=== PATIENT | male | born 1950 | race Caucasian/White ===

== ENCOUNTER 2019-07-11 04:19 | Emergency (ER) | payer OTHER, SELFPAY ==
[2019-07-11 04:20] VITALS: BP 177/68; PULSE 114; RESP 19; TEMP 36.4; O2SAT 100; BMI 25.2
[2019-07-11 04:33] VITALS: TEMP 36.4
[2019-07-11 04:50] LABS: Bacteria 0 SEEN /hpf (None Seen); Mucous, Urine 0 SEEN /hpf (<or=2+); Squamous Epithelial Cells - UA 0 SEEN /hpf (0-5)
[2019-07-11 05:32] LABS: Color, Urine Red (Yellow); Glucose, Dipstick Normal (Normal); Ketone-Dipstick Negative (Negative); Leukocyte Esterase-Dipstick 100 /ul (Negative); Nitrite-Dipstick Negative (Negative); Occult Blood-Urine 250 /ul (Negative); Protein-Dipstick 500 mg/dl (Negative); Urine Bilirubin Dipstick Negative (Negative); Urine Clarity Turbid (Clear); Urine Urobilinogen Normal (Normal)
[2019-07-11 05:35] LABS: Red Blood Cells-Urine > 100 SEEN /hpf (0-5); White Blood Cells >100 SEEN /hpf (0-5)
--- NOTE | 2019-07-11 05:57 | ED.VIS.GEN ---
History of Present Illness Chief Complaint: Complaint Narrative: Patient presenting for evaluation secondary to hematuria and dysuria. Patient has an underlying history of BPH. He is on Plavix. Patient states that approximately a week ago he had a couple of days of burning when he urinated as well as blood in his urine. He reports that this cleared up, and then since yesterday he has been having more blood in his urine. He states that intermittently he will urinate clots. He has a feeling of urinary urgency and incomplete emptying as well as dysuria. He denies any flank pain as well as denies any fevers or any other constitutional symptoms. Review of systems otherwise negative. Past Medical History - Allergies and Home Meds Allergies/Adverse Reactions: Allergies No Known Allergies Allergy (Verified 07/11/19 04:27) Primary Care Physician: NOT,DEFINED [NON-STAFF] - Past Medical History: - - Hypothyroidism, coronary artery disease, tobacco abuse Smoking Status: Current every day smoker Review of Systems General: Denies: Chills, Fever, Sweats Eyes: Denies: Visual changes - bilaterally, Diplopia ENT: Denies: Rhinorrhea, Sore throat Cardiovascular: Denies: Chest pain, Palpitations Respiratory: Denies: Dyspnea, Cough, Dyspnea on exertion Gastrointestinal: Denies: Abdominal pain, Nausea, Vomiting, Diarrhea, Melena, Hematochezia Genitourinary: Reports: Dysuria, Hematuria, Frequency Musculoskeletal: Denies: Back pain, Extremity Pain Skin: Denies: Rash, Wounds Neurological: Denies: Headache, Weakness, Numbness Physical Exam Vital Signs/Narrative: Vital Signs Temp Pulse Resp BP Pulse Ox 07/11/19 04:33 97.5 F L 07/11/19 04:20 97.5 F L 114 H 19 H 177/68 H 100 Inital Vital Signs reviewed: Yes General: Well nourished, Well developed, No Acute Distress, - - Strong smell of tobacco Head: Normocephalic, Atraumatic Eyes: Perrl, EOMI ENT: Moist mucous membranes, No rhinorrhea Neck: Supple, Nontender Cardiovascular: Regular rhythm, No murmurs, Tachycardia Respiratory: No distress, CTA bilaterally, Chest nontender Abdomen: Soft, Nontender, Nondistended, Normal bowel sounds Back: Nontender, Normal Inspection Extremities: Nontender, No edema Skin: Normal color, No rash Neurological: Alert, Oriented x3, Cranial nerves II-XII grossly intact, Normal Strength, Normal Sensation Psychological: Normal affect, Normal Mood Diagnostic/Tx/Re-eval - Medical Decision Making Patient presented secondary to hematuria. Urinalysis was obtained which shows a significant amount of both whites and red cells likely consistent with a urinary tract infection. Urine was sent for culture. Bedside bladder scan showed the patient to only have retention of 150 cc of urine, I do not believe that he requires catheter placement at this point. Patient will be treated with a course of Keflex. I did inform the patient that with any history of smoking, hematuria runs the risk of being a predecessor to bladder cancer, and I will refer the patient to urology for follow-up. Patient understands signs and symptoms which to return. Patient was discharged in stable condition. ED Disposition - Plan for ED Patient: Disposition: Home or Assisted Living Diagnosis: Hematuria, Urinary tract infection Instructions: Bladder Infection, Male (Adult), Hematuria Prescriptions: Cephalexin [Keflex] 500 mg PO Q12 #14 cap Prescription Printed Referrals: Artuhr De Leon MD [STAFF PHYSICIAN] - 1-2 Weeks
[2019-07-11] MEDS: Cephalexin 250 MG Capsule 500 MG PO (06:07)
== END 2019-07-11 06:08 | disposition home or self-care (01) ==
PROVIDERS: Emergency Provider Emergency Medicine; PCP Family Medicine
DX: N39.0 Urinary tract infection, site not specified (principal); R31.9 Hematuria, unspecified; N40.0 Benign prostatic hyperplasia without lower urinary tract symptoms; E03.9 Hypothyroidism, unspecified; I25.10 Atherosclerotic heart disease of native coronary artery without angina pectoris; Z79.02 Long term (current) use of antithrombotics/antiplatelets; Z79.82 Long term (current) use of aspirin; Z79.899 Other long term (current) drug therapy; F17.200 Nicotine dependence, unspecified, uncomplicated
CPT/HCPCS: 81001; 87086; 87088; 99283

== ENCOUNTER → 2019-08-19 08:30 | Outpatient (CLI) | payer MEDICARE, SELFPAY ==
--- NOTE | 2019-08-19 08:33 | CT_ITS ---
STUDY: CT ABDOMEN AND PELVIS WITH AND WITHOUT CONTRAST REASON FOR EXAM: Male, 69 years old. Gross hematuria RADIATION DOSAGE (If Supplied By Facility): CTDIvol = ( 20.59 ) mGy, DLP = ( 2681.32 ) mGycm TECHNIQUE: Transaxial images were obtained from the dome of the diaphragm to the symphysis pubis without oral contrast. 100 ML ISOVUE 370 was administered. Sagittal and coronal images were reconstructed. Individualized dose optimization techniques were used for this CT. COMPARISON: None. FINDINGS: The visualized lung bases are unremarkable. The visualized portions of the heart are within normal limits. Normal liver. Normal gallbladder and extrahepatic biliary system. Normal spleen. Normal pancreas. Normal bilateral adrenal glands. No acute abnormalities of the kidneys. No hydronephrosis. Bilateral arterial calcifications. Small nonobstructing stones are not excluded. Symmetric contrast enhancement. No masses. Evaluation of the GI tract is limited by absence of oral contrast. Cannot exclude stomach wall thickening. No dilated loops of bowel or evidence for obstruction. Cannot exclude segmental thickening of the lorenzo of the small or large bowel. Cannot exclude enteritis or colitis. Moderate diffuse fecal retention. Diverticulosis without definite diverticulitis. Appendix within normal limits. There is diffuse atherosclerotic calcification of the abdominal aorta, without a demonstrated aneurysm. Normal inferior vena cava. Normal retroperitoneum. Irregular thickening of the bladder wall including trabeculations, likely from chronic bladder outlet obstruction related to enlarged prostate. 9 mm calcification along the left posterior bladder wall consistent with previous renal stone or bladder stone. Normal abdominal wall. There are diffuse degenerative changes of the visualized lumbar spine. Diffuse ankylosis of the visualized thoracic spine. Bilateral pars defects of L5 with anterolisthesis. CT/CT Abd/Pelvis W/WO Contrast IMPRESSION: No definite acute abnormality. Bilateral renal artery calcifications making it difficult to exclude small nonobstructing renal stones. No hydronephrosis or evidence for obstructing stone however. Irregular diffuse bladder wall thickening probably related to chronic bladder outlet obstruction. Electronically Signed: Kam Garcia MD at 21:34 EST , Service support ,
[2019-08-19 09:01] LABS: CREATININE FINGERSTICK 1.4 mg/dL (0.70-1.30)
== END ==
PROVIDERS: Family Provider Family Medicine; PCP Family Medicine; Referring Provider Nurse Practitioner Adult Health
DX: R31.9 Hematuria, unspecified (principal)
CPT/HCPCS: 74178; Q9967

== ENCOUNTER → 2019-09-14 17:52 | Outpatient (CLI) | payer MEDICARE, SELFPAY | PROVIDERS: Family Provider Family Medicine; PCP Family Medicine; Referring Provider Urology; Visit Provider Urology | DX: N39.0 Urinary tract infection, site not specified (principal) | CPT/HCPCS: 87086 ==

== ENCOUNTER 2019-10-01 05:10 | Day surgery (SDC) | payer MEDICARE, SELFPAY ==
[2019-09-24 09:12] VITALS: BP 105/55; PULSE 108; RESP 16; TEMP 36.8; O2SAT 96; BMI 24.3
--- NOTE | 2019-09-24 09:34 | SDCEKG_ITS ---
Test Reason : Blood Pressure : / mmHG Vent. Rate : 090 BPM Atrial Rate : 090 BPM P-R Int : 160 ms QRS Dur : 098 ms QT Int : 344 ms P-R-T Axes : 081 070 072 degrees QTc Int : 420 ms Sinus rhythm with Premature atrial complexes Low voltage QRS Borderline ECG Confirmed by ANJALI DIEHL, MARTHA ([id number]), sports editor JERONIMO DESHPANDE ([id number]) on 09/28/2019 12:12:31 PM Referred By: Arthur De Leon Confirmed By:MARTHA ALBA MD
[2019-09-24 10:02] LABS: Hematocrit 35.7 % (40-54); Hemoglobin 11.5 g/dL (13.0-16.5); Mean Corp Hgb Conc 32.2 g/dL (32-36); Mean Corpuscular Hgb 32.4 pg (27.0-32.0); Mean Corpuscular Volume 100.6 fL (80-94); Mean Platelet Vol. 8.9 fl (6.2-12.0); Platelet Count 328 K/mm3 (150-450); RBC Distribution Width CV 14.1 % (11.6-14.6); RBC Distribution Width SD 52.6 fl (35.1-43.9); Red Blood Count 3.55 M/mm3 (4.6-6.2); White Blood Count 7.7 K/mm3 (4.4-11.0)
[2019-09-24 10:11] LABS: International Normalized Ratio 1.2; Partial Thromboplast Time 25.8 Seconds (24.1-36.2); Prothrombin Time (Protime)PT. 15.4 SECONDS (11.7-14.9)
[2019-09-24 10:25] LABS: AST(SGOT) 12 U/L (15-37); Alanine Aminotransfer ALT/SGPT 18 U/L (16-61); Albumin, Serum 2.8 g/dL (3.2-5.0); Alkaline Phosphatase 137 U/L (45-117); Anion Gap 5 (5-15); BUN 12 mg/dL (7-18); BUN/Creat Ratio 10.2 RATIO (10-20); Bilirubin, Direct 0.13 mg/dL (0.00-0.30); Calcium,Total 9.2 mg/dL (8.5-10.1); Chloride 105 mmol/L (98-107); Creatinine, Serum 1.18 mg/dL (0.70-1.30); EST Glomerular Filtration Rate 65 mL/min (>60); Est Glom Filt Rate - Afr Amer 78 mL/min (>60); Estimated Creatinine Clearance 63.94 ml/min; Globulin 5.2 g/dL (2.2-4.2); Glucose 99 mg/dL (74-106); Potassium 3.9 mmol/L (3.5-5.1); Sodium Level 137 mmol/L (136-145); Thyroid Stim Hormone (TSH) 0.81 uIU/mL (0.358-3.74)
--- NOTE | 2019-09-24 10:26 | EKG12_ITS ---
Test Reason : Blood Pressure : / mmHG Vent. Rate : 092 BPM Atrial Rate : 092 BPM P-R Int : 156 ms QRS Dur : 094 ms QT Int : 344 ms P-R-T Axes : 077 088 079 degrees QTc Int : 425 ms Sinus rhythm with Premature atrial complexes Low voltage QRS Borderline ECG No previous ECGs available Confirmed by EZEQUIEL LAO ([id number]), news copy editor ARLEEN MOULTON ([id number]) on 10/08/2019 10:34:26 AM Referred By: Arthur De Leon Confirmed By:EZEQUIEL LAO
[2019-10-01 05:48] VITALS: BP 104/59; PULSE 89; RESP 16; TEMP 36.2; O2SAT 97; BMI 24.3
[2019-10-01] MEDS: Lactated Ringers 1,000 ML 100 ML IV (06:05)
[2019-10-01] MEDS: Cefazolin 2 GM in 0.9% Normal Saline 100 ML IV (07:22)
--- NOTE | 2019-10-01 07:50 | PCM.DC.URO ---
Discharge Diet: Light diet - advance as tolerated Discharge Activity: Return to Normal Activity Call your doctor if you observe: Fever of 101 or Higher Suture Line Care: Avoid Pulling/Pushing, Avoid Pinching/Bending Allergies/Adverse Reactions: Allergies No Known Allergies Allergy (Verified 10/01/19 05:48) Medications to take at Discharge Levothyroxine [Synthroid] 112 mcg PO DAILY 07/11/19 Iron Ag,Ps/C/Fa6/B12/Zn/SA/Sto [Niferex Tablet] 1 ea PO DAILY 09/24/19 Ciprofloxacin [Cipro] 500 mg PO BID #14 tab 10/01/19 Finasteride [Proscar] 5 mg PO DAILY #30 tab 10/01/19 Hydrocodone Bitart/Apap 5-325 [[place] 5MG-325MG] 1 tab PO Q4H PRN PRN 7 Days #14 tab 10/01/19 Tamsulosin HCl [Flomax] 0.4 mg PO DAILY #30 cap 10/01/19 The following prescriptions were given: Ciprofloxacin [Cipro] 500 mg PO BID #14 tab Transmission Status: Received by [facility] Tamsulosin HCl [Flomax] 0.4 mg PO DAILY #30 cap Transmission Status: Sent to [facility] Hydrocodone Bitart/Apap 5-325 [[place] 5MG-325MG] 1 tab PO Q4H PRN PRN 7 Days #14 tab PRN Reason: Pain Transmission Status: Received by [facility] Finasteride [Proscar] 5 mg PO DAILY #30 tab Transmission Status: Sent to [facility] Primary Care Physician: Emmanuel Niño MD [Primary Care Provider] - Test Results: Test results from this visit will be discussed in further detail at your follow-up appointment, if applicable. Please Follow Up With: Arthur De Leon MD When: in 2 weeks, please call to make an appointment.
--- NOTE | 2019-10-01 07:50 | PCM.OPRPT ---
Report of Operation Date of Procedure: 10/01/19 Pre-Operative Diagnosis: Bladder stone BPH with obstruction incomplete emptying active urinary tract infection Post-Operative Diagnosis: Same Surgery/Procedure Performed:: Cystoscopy, cystolitholapaxy ataxia laser of a 2.5 cm bladder stone Description of Surgical Findings:: 69-year-old male with history of recurrent bladder infections difficulty emptying his bladder on CAT scan was found to have a stone in his bladder also has BPH with obstruction renal check a PSA. Today he scheduled for TURP and also laser of the bladder stone. Patient was taken back to surgery after smooth induction of general anesthesia he was placed in dorsolithotomy position went into the bladder with a 26 [place] continuous flow resectoscope I switched over to the visual obturator, entire length the urethra was normal the sphincter was intact that is short distance between the verumontanum and the prostate would be a good candidate for UroLift procedure. Inside the bladder copious amount of purulent dark smelly foul urine so this was sent off for culture decided not to do a TURP for the risk of a sepsis given his actively infected looking urine I then used a 4 intermittent micron laser fiber there is a 2.5 cm stone in the base of the bladder I lasered the stone little tiny pieces Ellik out all the chips out. I then took out the scope I did not leave a catheter he will be started on medical therapy with Flomax and Proscar we will check a PSA I will see him back in the office for checkup will set him up for UroLift procedure for his BPH and obstruction this can be done as an outpatient. Type of Anesthesia:: General Specimen's removed: bladder stone - Admit VTE Documentation VTE Present on Admission: No VTE Mechan Device Prophylaxis: SCD's
[2019-10-01 07:59] VITALS: BP 104/59; BP 116/71; PULSE 65; RESP 18; TEMP 37.1; O2SAT 96
[2019-10-01 08:14] VITALS: BP 104/59; BP 132/66; PULSE 63; RESP 16; O2SAT 95
[2019-10-01 08:17] VITALS: BP 104/59; BP 141/78; PULSE 63; RESP 16; TEMP 37.2; O2SAT 97
[2019-10-01 09:28] VITALS: BP 104/59; BP 130/65; PULSE 80; RESP 16; TEMP 36.2; O2SAT 96
== END 2019-10-01 09:42 | disposition home or self-care (01) ==
LOC: SDC 05:11 → AC 05:12
PROVIDERS: Anesthesiology; PCP Family Medicine; Referring Provider Urology; Visit Provider Urology
PROC: (CPT 52317; principal; 2019-10-01 07:20)
PROC: (CPT 52317; 2019-10-01 07:20)
DX: N21.0 Calculus in bladder (principal); N40.1 Benign prostatic hyperplasia with lower urinary tract symptoms; N13.8 Other obstructive and reflux uropathy; N39.0 Urinary tract infection, site not specified; I25.10 Atherosclerotic heart disease of native coronary artery without angina pectoris; E78.5 Hyperlipidemia, unspecified; E03.9 Hypothyroidism, unspecified; I10 Essential (primary) hypertension; G25.81 Restless legs syndrome; D64.9 Anemia, unspecified; Z95.1 Presence of aortocoronary bypass graft; Z79.82 Long term (current) use of aspirin; Z79.02 Long term (current) use of antithrombotics/antiplatelets; Z79.899 Other long term (current) drug therapy; F17.200 Nicotine dependence, unspecified, uncomplicated
CPT/HCPCS: 00910; 52317; 80048; 80076; 84443; 85027; 85610; 85730; 87086; 93005; J7120; J2405